=== PATIENT | male | born 1940 | race Caucasian/White ===

== ENCOUNTER → 2024-11-01 | Outpatient (CLI) | payer OTHER ==
[~2024-11-01] MED LIST: BENZ200C70 PO; CLOR37TA PO; ELIQ2.5T PO; ENOX60IN3 SC; ISOVUE-370 76% 100 ML VIAL As Ordered ONE; KEPP10002 PO; LOVE1INJ SC; MAGICMW SSP; TAMS1CAP17 PO; ZONI100C67 PO
== END ==
LOC: M RAD 12:02
DX: C18.9 Malignant neoplasm of colon, unspecified (principal); K44.9 Diaphragmatic hernia without obstruction or gangrene; K76.89 Other specified diseases of liver; K80.20 Calculus of gallbladder without cholecystitis without obstruction; Z90.49 Acquired absence of other specified parts of digestive tract; M48.54XA Collapsed vertebra, not elsewhere classified, thoracic region, initial encounter for fracture
CPT/HCPCS: 71260; 74177; Q9967

== ENCOUNTER → 2024-11-10 | Outpatient (CLI) | payer OTHER ==
[~2024-11-10] MED LIST changes: -ISOVUE-370 76% 100 ML VIAL As Ordered ONE; +LIDO1ADH93 TOP; +ROBI1CAP PO
== END ==
LOC: M RAD 10:32
PROVIDERS: ATTEND Specialist
DX: C18.9 Malignant neoplasm of colon, unspecified (principal); I82.411 Acute embolism and thrombosis of right femoral vein